=== PATIENT | female | born 1945 | race Caucasian/White ===

== ENCOUNTER → 2017-09-04 | Outpatient (CLI) | payer OTHER ==
[~2017-09-04] MED LIST: ALPR0.5T7 PO; CATHETER FLUSH 10 ML SYR IV PRN; CITA40TA11 PO; IOHEXOL 350 MG/ML 100 ML (OMNIPAQUE 350) VIAL IV ONE; LISI1TAB10 PO; NIFE60TA74 PO; NS 250 ML (IVPB) BAG IV ONE; OMEP20CA12 PO; RT-ALBUINH IH; TIOT18CA2 IH; TRAZ-28 PO
[2017-09-04 10:06] LABS: BUN/CREATININE RATIO 16; CREATININE SERUM 0.77 MG/DL (0.60-1.30); GFR ESTIMATED > 60
--- NOTE | 2017-09-04 11:11 | Diagnostic Imaging Report ---
PROCEDURE: CT chest with contrast only. TECHNIQUE: Multiple contiguous axial images were obtained through the chest after administration of intravenous contrast. INDICATION: Lung mass and dyspnea There are scattered bilateral pulmonary parenchymal densities including a dominant 2.9 x 2.1 cm irregular noncalcified mass along the superior aspect of the left pulmonary hilum. This extends toward the apex of the left upper lobe which may indicate a component of postobstructive pneumonitis. There is an approximately 0.4 cm subpleural nodule just lateral to the dominant mass with an approximately 0.5 cm nodular focus posteriorly adjacent to the major fissure. Note is made of air cyst in the lingula. Several subcentimeter nodules are present within the periphery of right upper, middle and lower lobes with an approximately 1.4 cm sub-solid nodular focus in the left lower lobe. No significant pleural fluid. IMPRESSION: Multiple bilateral pulmonary nodular densities with no suspicious soft tissue mass along the superior aspect left hilum measuring 2.9 x 2.1 cm. This is highly suspicious for neoplasm and consideration could be given to bronchoscopy or percutaneous biopsy. Additional small nodules in both lungs could be related to pneumonitis or metastatic disease and mildly prominent mediastinal lymph nodes are noted which could be metastatic in nature. Mild pericardial effusion is noted. Fluid is identified. There is an approximately 0.6 cm low-density nodule in the right lobe of the thyroid gland. There is a mildly prominent lymph node along the anterior aspect of the left mediastinum adjacent to origin of left common carotid artery which measures 1.1 cm long axis. There is an approximately 2.2 x 0.8 cm precarinal lymph node. Small amount of pericardial fluid is present. Dictated by: Dictated on workstation # [id number]
== END ==
LOC: RAD 09:29
PROVIDERS: ATTEND Nurse Practitioner Family
DX: R91.8 Other nonspecific abnormal finding of lung field (principal); I31.3 Pericardial effusion (noninflammatory); E04.1 Nontoxic single thyroid nodule; J44.9 Chronic obstructive pulmonary disease, unspecified; F17.200 Nicotine dependence, unspecified, uncomplicated
CPT/HCPCS: 36415; 71260; 82565; 84520

== ENCOUNTER → 2017-09-11 | Outpatient (CLI) | payer OTHER ==
[~2017-09-11] MED LIST changes: -CATHETER FLUSH 10 ML SYR IV PRN; -IOHEXOL 350 MG/ML 100 ML (OMNIPAQUE 350) VIAL IV ONE; -NS 250 ML (IVPB) BAG IV ONE; +RT-ALBUTEROL SULF 2.5 MG/3 ML PRE-MIX VIAL INH ONE; +RT-ALBUTEROL SULF 2.5 MG/3 ML PRE-MIX VIAL ONE
== END ==
LOC: RT 09:34 → EDUNIT# 09:45
PROVIDERS: ATTEND Nurse Practitioner Family
DX: J44.9 Chronic obstructive pulmonary disease, unspecified (principal); R91.8 Other nonspecific abnormal finding of lung field; R06.02 Shortness of breath; F17.200 Nicotine dependence, unspecified, uncomplicated
CPT/HCPCS: 94060; 94726; 94729

== ENCOUNTER 2017-09-21 14:00 | Outpatient (CLI) | payer OTHER ==
[~2017-09-21] VITALS: Ht 161.3 cm; Wt 68.9 kg
[2017-09-21] MEDS ORDERED: NIFE60TA74 PO (14:05)
[2017-09-21] MEDS ORDERED: RT-ALBUINH IH (14:05)
[2017-09-21] MEDS ORDERED: CITA40TA11 PO (14:05)
[2017-09-21] MEDS ORDERED: TIOT18CA2 IH (14:05)
[2017-09-21] MEDS ORDERED: ALPR0.5T7 PO (14:05)
[2017-09-21] MEDS ORDERED: LISI1TAB10 PO (14:05)
[2017-09-21] MEDS ORDERED: TRAZ-28 PO (14:05)
[2017-09-21] MEDS ORDERED: OMEP20CA12 PO (14:05)
== END 2017-09-21 14:52 ==
LOC: PREOP 14:00
PROVIDERS: ATTEND Internal Medicine Critical Care Medicine
DX: Z01.818 Encounter for other preprocedural examination (principal); R91.8 Other nonspecific abnormal finding of lung field; R06.02 Shortness of breath; F17.200 Nicotine dependence, unspecified, uncomplicated

== ENCOUNTER → 2017-10-10 | Outpatient (CLI) | payer OTHER ==
[~2017-10-10] MED LIST changes: -RT-ALBUTEROL SULF 2.5 MG/3 ML PRE-MIX VIAL INH ONE; -RT-ALBUTEROL SULF 2.5 MG/3 ML PRE-MIX VIAL ONE
--- NOTE | 2017-10-10 14:05 | Diagnostic Imaging Report ---
INDICATION: Lung mass. TECHNIQUE: Serum blood glucose level at the time of injection was 106 mg/dL. The patient was administered 14.2 mCi F-18 FDG intravenously, administered in the right antecubital location, and PET imaging was performed from the top of the skull to the mid thighs. In addition, noncontrast CT was performed for attenuation correction and anatomic correlation. COMPARISON: No prior PET/CT is available for comparison. Comparison is made with recent CT chest from 09/04/2017. FINDINGS: Symmetric uptake of activity within the brain is noted. Soft tissues of the neck are unremarkable. The previously seen spiculated mass in the left upper lobe does show FDG avidity with SUV max of approximately 12.3. Immediately cephalad and slightly lateral to the dominant left upper lobe lesion is a second lesion demonstrating uptake with SUV max of approximately 4.2 suggestive of a satellite lesion. The small node in the superior mediastinum adjacent to the origin of the left common carotid artery also shows FDG avidity with SUV max of approximately 3.8. No other areas of increased uptake within the chest are identified. Remainder of the pulmonary parenchyma is unremarkable. Previously noted small pulmonary nodules on conventional CT are likely too small to be detected by PET. Normal physiologic activity within the abdomen and pelvis is identified. No abdominal or pelvic lymphadenopathy or evidence of metastatic disease is seen. IMPRESSION: Abnormal PET/CT demonstrating intense uptake within the dominant mass in the left upper lobe, suggestive of primary lung neoplasm. There is a smaller satellite lesion just cephalad and lateral to the dominant lesion in the left upper lobe, which demonstrates uptake as well. There is a small lymph node in the superior mediastinum, suspicious for a metastatic node. No other regions of increased uptake are identified. Dictated by: Dictated on workstation # [id number]
== END ==
LOC: RAD 07:48
PROVIDERS: ATTEND Internal Medicine Critical Care Medicine
DX: C78.00 Secondary malignant neoplasm of unspecified lung (principal); C79.51 Secondary malignant neoplasm of bone

== ENCOUNTER 2017-10-18 06:44 | Day surgery (SDC) | payer MEDICARE, OTHER ==
[~2017-10-18] VITALS: Ht 161.3 cm; Wt 68.9 kg
[2017-10-18] MEDS ORDERED: LIDOCAINE JELLY 2% (XYLOCAINE) 30 ML TUBE TOP ONE (06:45)
[2017-10-18] MEDS ORDERED: LIDOCAINE PF 1% 2 ML AMP INJ ONE (06:45)
[2017-10-18] MEDS ORDERED: LIDOCAINE 4% INJ (XYLOCAINE) 5ML AMP INJ ONE (06:45)
--- OUTSIDE RECORDS SUMMARY | 2017-10-18 06:51 | XMS REPORT | Continuity of Care Document ---
Author Author [facility] Organization [facility] Address Unknown Phone Unavailable Allergies There is no data. Medications There is no data. Problems There is no data. Procedures There is no data. Results There is no data. Encounters ACCT No. Visit Date/Time Discharge Status Pt. Type Provider Facility Loc./Unit Complaint [id number] 07/20/2015 16:49:14 07/20/2015 23:59:59 CLS Outpatient Bashir Barrett
--- OUTSIDE RECORDS SUMMARY | 2017-10-18 06:51 | XMS REPORT | CCD ---
Author Author FRANKLYN LOREDO Organization Unknown Address [address] [facility] [address] [place], [place] [id number] Care Team Providers Care State Archivist Name Role Phone GORDY DIETZ MD Attphys Vital Signs Unknown or Not Available. Allergies Allergy Code Allergy Type Reaction Status No Known Drug Allergies 0 No known drug allergies Active Procedures Procedure Code Procedure Type Date Cataract removal insertion of lens; (-RT Right side of body) 31190 CPT 06/30/2015 History of Immunizations Unknown or Not Available. Problems Problem Code Start Date Resolved Date Status Syncopes 584792210 07/03/2015 Active Results Unknown or Not Available. Active Medications Medication Code Dose Units Frequency Route Modification Start Date/Time ALPRAZolam 1MG Oral Tablet [id number] 1 MILLIGRAMS DAILY ORAL 07/04/2015 09:26 Prescription Detail 1 MILLIGRAMS ORAL DAILY Citalopram 20MG Oral Tablet [id number] 20 MILLIGRAMS DAILY ORAL 07/04/2015 09:26 Prescription Detail 20 MILLIGRAMS ORAL DAILY Lisinopril/Hydrochlorothiazide 20MG-25MG Oral Tablet [id number] 1 EACH DAILY ORAL 07/04/2015 09:26 Prescription Detail 1 EACH ORAL DAILY Omeprazole 20 MG Oral Tablet, Delayed Release [id number] 20 MG DAILY ORAL 07/04/2015 09:26 Prescription Detail 20 MG ORAL DAILY Medications Administered During Visit Unknown or Not Available. Encounters Encounter Diagnosis Diagnosis Code Start Date Unspecified cataract H269 06/30/2015 Social History Smoking Status Code Start Date End Date Current every day smoker [id number] Patient Decision Aids Unknown or Not Available. Discharge Instructions You were admitted to [facility] on 06/30/2015 06:25 with a principal diagnosis of Unspecified cataract You had the following procedures done: Cataract removal insertion of lens; (-RT Right side of body) You were discharged from [facility] on 06/30/2015 10:16 Should you have any questions prior to discharge, please contact a member of your healthcare team. If you have left the hospital and have any questions, please contact your primary care physician. Chief Complaint and Reason For Visit Chief Complaint Date of Onset EYE CATARACT RT Function Status Unknown or Not Available. Plan of Care Unknown or Not Available. Referral/Transition of Care Unknown or Not Available.
--- OUTSIDE RECORDS SUMMARY | 2017-10-18 06:51 | XMS REPORT ---
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 510271149134385 Problem Essential hypertension I10 Active 53429132 Problem GERD without esophagitis K21.9 Active 749662350 ALLERGIES No Known Allergies SOCIAL HISTORY Never Assessed PLAN OF CARE Activity Details Follow Up prn Reason: VITAL SIGNS Height 53.3 in 2016-07-13 Weight 151.5 lbs 2016-07-13 Temperature 98.1 degrees Fahrenheit 2016-07-13 Heart Rate 100 bpm 2016-07-13 Respiratory Rate 18 2016-07-13 BMI 37.49 kg/m2 2016-07-13 Blood pressure systolic 160 mmHg 2016-07-13 Blood pressure diastolic 82 mmHg 2016-07-13 MEDICATIONS Medication Instructions Dosage Frequency Start Date End Date Duration Status Alprazolam 0.5 MG Orally Twice a day prn 1/2 tablet Active Citalopram Hydrobromide 40 mg Orally Once a day 1 tablet 24h Active NIFEdipine 20 mg Orally at bedtime 1 capsule Active Omeprazole 20 MG Orally Once a day 1 capsule 24h Active Lisinopril-Hydrochlorothiazide 20-25 MG Orally Once a day 1 tablet 24h Active Proventil HFA 108 (90 Base) MCG/ACT Inhalation 2 times a day prn 2 puffs as needed Active RESULTS No Results PROCEDURES Procedure Date Ordered Result Body Site [facility] ESTABLISHED PATIENT July 13, 2016 IMMUNIZATIONS No Known Immunizations MEDICAL (GENERAL) HISTORY Type Description Date Medical History Copd Medical History hypertension Medical History acid reflux Medical History depression, anxiety Surgical History Surgical History hysterectomy-full Surgical History cholecystectomy Surgical History cataracts-both Surgical History colonscopy-normal 2012 Surgical History EGD-acid reflux
[2017-10-18] MEDS ORDERED: PROPOFOL INJECTION 50 ML IV ONE (06:52)
[2017-10-18] MEDS ORDERED: DEXAMETHASONE 10 MG/ML (DECADRON) 1 ML VIAL ONE (06:53)
[2017-10-18] MEDS ORDERED: MIDAZOLAM 2 MG/2 ML (VERSED) VIAL ONE (06:53)
[2017-10-18] MEDS ORDERED: ONDANSETRON 4 MG/2 ML (SDV) Z0FRAN ONE (06:53)
[2017-10-18] MEDS ORDERED: fentaNYL INJECTION 100 MCG/2 ML AMP ONE (06:53)
[2017-10-18] MEDS ORDERED: LACTATED RINGERS 1,000 ML IV STA (06:54)
[2017-10-18] MEDS ORDERED: ROCURONIUM 10 MG/ML 5 ML SYRINGE IV ONE (07:03)
[2017-10-18] MEDS ORDERED: LACTATED RINGERS 1,000 ML IV ONE (07:04)
[2017-10-18] MEDS ORDERED: LIDOCAINE JELLY 2% (XYLOCAINE) 5 ML TUBE ONE (07:09)
[2017-10-18 07:10] VITALS: BP 192/107
[2017-10-18] MEDS ORDERED: LIDOCAINE PF 2% 5 ML (XYLOCAINE) VIAL ONE (07:16)
[2017-10-18] MEDS ORDERED: proPOfol 200 MG/20 ML (DIPRIVAN) VIAL IV ONE (07:16)
[2017-10-18] MEDS ORDERED: hydrALAZINE (APESOLINE) 20 MG/ML VIAL ONE (07:46)
[2017-10-18] MEDS ORDERED: GLYCOPYRROLATE 0.2 MG/ML (ROBINUL) 2 ML VIAL ONE (07:48)
[2017-10-18] MEDS ORDERED: NEOSTIGMINE 1 MG/ML 5 ML SYRINGE ONE (07:48)
[2017-10-18] MEDS ORDERED: ONDANSETRON 4 MG/2 ML (SDV) Z0FRAN IVP PRN (08:15)
[2017-10-18] MEDS ORDERED: HYDROmorphone 1 MG/ML (DILAUDID) 1 ML SYRINGE IV PRN (08:15)
--- NOTE | 2017-10-18 08:19 | Pulmonary Procedures ---
Pulmonary Procedures Date of Procedure Date of Service: Oct 18, 2017 Bronch Bronchoscopy with bronchoalveolar lavage (BAL), transbronchial washes, brushes and EBUS Preop DX ILD Postop DX: same Complications: none After informed consent obtained and formal time out pt was sedated per anesthesia. Bronchoscope was advanced through ET tube. 1% lidocaine was used on mic, and left/right main stem bronchus. EBUS was used to US the mediastinum. No enlarged lymph nodes were noted on EBUS and transbronchial bx were not done. An anatomical tour was undertaken down to the segmental bronchi bilaterally. No endobronchial lesions noted. From the JENIFER a bronchoalveolar lavage (BAL), transbronchial washes and, brushes were obtained. Pt tolerated procedure well. No complications noted. Stat CXR is pending. SIERRA LUCIO DO Oct 18, 2017 08:19
--- NOTE | 2017-10-18 08:53 | Diagnostic Imaging Report ---
Indication: Bronchoscopy and lung mass. Time of examination: 8:30 AM There is no evidence of pneumothorax, status post bronchoscopy. Mass left hilar left upper lobe is noted. There appears to be some infiltrate in the left upper lobe as well perhaps representing postobstructive pneumonia. Right lung is clear. Impression: No evidence of pneumothorax, status post bronchoscopy. Dictated by: Dictated on workstation # [id number]
[2017-10-18 09:10] VITALS: BP 173/69
--- NOTE | 2017-10-18 09:36 | Diagnostic Imaging Report ---
INDICATION: Fluoroscopy during bronchoscopy. Time of exam 7:48 AM Fluoroscopy was provided for Dr. Gunderson during a bronchoscopy. 83 seconds of fluoroscopy was utilized. IMPRESSION: Fluoroscopy during bronchoscopy. Dictated by: Dictated on workstation # [id number]
[2017-10-18 09:40] VITALS: BP 177/86
[2017-10-18 10:00] VITALS: BP 177/86
== END 2017-10-18 10:00 | disposition home or self-care (01) ==
LOC: ENDO 06:44
PROVIDERS: ATTEND Internal Medicine Critical Care Medicine
DX: J84.9 Interstitial pulmonary disease, unspecified (principal); J44.9 Chronic obstructive pulmonary disease, unspecified; I10 Essential (primary) hypertension; F17.210 Nicotine dependence, cigarettes, uncomplicated; Z79.899 Other long term (current) drug therapy
CPT/HCPCS: 71045; 87070; 87101; 87116; 87205; 94640

== ENCOUNTER → 2017-11-08 | Outpatient (CLI) | payer MEDICARE, OTHER ==
[~2017-11-08] VITALS: Ht 161.3 cm; Wt 68.9 kg
[~2017-11-08] MED LIST changes: +ALPRAZolam 0.5 MG (XANAX) TAB PO SCH; +BUDE10.2 IH; +LIDOCAINE 1% INJ 20 ML 20 ML VIAL INJ ONE; +MIDAZOLAM 2 MG/2 ML (VERSED) VIAL IVP PRN; +TRAZ-189 PO; -TRAZ-28 PO; +fentaNYL INJECTION 100 MCG/2 ML AMP IVP PRN; +hydrALAZINE (APESOLINE) 20 MG/ML VIAL IV SCH; +lisINopril 20 MG (PRINIVIL) TABLET PO ONE; +meTOprolol TARTRATE 25 MG (LOPRESSOR) TABLET PO SCH
[2017-11-08 08:05] VITALS: BP 180/113
[2017-11-08 08:17] LABS: BASOPHILS # (AUTO) 0.1 10^3/uL (0.0-0.1); BASOPHILS % (AUTO) 1 % (0-10); EOSINOPHILS # (AUTO) 0.1 10^3/uL (0.0-0.3); EOSINOPHILS % (AUTO) 2 % (0-10); HEMATOCRIT 39 % (35-52); HEMOGLOBIN 13.1 G/DL (11.5-16.0); LYMPHOCYTES # (AUTO) 1.2 X 10^3 (1.0-4.0); LYMPHOCYTES % (AUTO) 23 % (12-44); MEAN CORPUSCULAR HEMOGLOBIN 28 PG (25-34); MEAN CORPUSCULAR HGB CONC 34 G/DL (32-36); MEAN CORPUSCULAR VOLUME 84 FL (80-99); MEAN PLATELET VOLUME 10.9 FL (7.4-10.4); MONOCYTES # (AUTO) 0.5 X 10^3 (0.0-1.0); MONOCYTES % (AUTO) 9 % (0-12); NEUTROPHILS # (AUTO) 3.3 X 10^3 (1.8-7.8); NEUTROPHILS % (AUTO) 65 % (42-75); PLATELET COUNT 280 10^3/uL (130-400); RED BLOOD COUNT 4.66 10^6/uL (4.35-5.85); RED CELL DISTRIBUTION WIDTH 13.3 % (10.0-14.5)
[2017-11-08 08:25] LABS: PROTHROMBIN TIME PATIENT 13.3 SEC (12.2-14.7)
[2017-11-08 10:42] VITALS: BP 180/113
== END ==
LOC: SDC 07:42 → 4TH 11-13 07:05
PROVIDERS: ATTEND Internal Medicine Critical Care Medicine
DX: R91.8 Other nonspecific abnormal finding of lung field (principal); R94.2 Abnormal results of pulmonary function studies; J44.9 Chronic obstructive pulmonary disease, unspecified; R06.02 Shortness of breath; F17.200 Nicotine dependence, unspecified, uncomplicated; Z53.9 Procedure and treatment not carried out, unspecified reason
CPT/HCPCS: 36415; 85025; 85610; 85730

== ENCOUNTER 2017-11-13 07:05 | Day surgery (SDC) | payer MEDICARE, OTHER ==
[~2017-11-13] VITALS: Ht 160 cm; Wt 72.3 kg
[2017-11-13] VITALS (13 sets, daily range): BP systolic 123–181; BP diastolic 66–93
[~2017-11-13 07:05] MED LIST changes: -ALPRAZolam 0.5 MG (XANAX) TAB PO SCH; -BUDE10.2 IH; -LIDOCAINE 1% INJ 20 ML 20 ML VIAL INJ ONE; -MIDAZOLAM 2 MG/2 ML (VERSED) VIAL IVP PRN; -fentaNYL INJECTION 100 MCG/2 ML AMP IVP PRN; -hydrALAZINE (APESOLINE) 20 MG/ML VIAL IV SCH; -lisINopril 20 MG (PRINIVIL) TABLET PO ONE; -meTOprolol TARTRATE 25 MG (LOPRESSOR) TABLET PO SCH
[2017-11-13] MEDS ORDERED: NS IV 1000 ML 1,000 ML IV STA (07:36)
[2017-11-13] MEDS ORDERED: MIDAZOLAM 2 MG/2 ML (VERSED) VIAL IVP PRN (07:45)
[2017-11-13] MEDS ORDERED: fentaNYL INJECTION 100 MCG/2 ML AMP IVP PRN (07:45)
[2017-11-13] MEDS ORDERED: LIDOCAINE 1% INJ 20 ML 20 ML VIAL INJ ONE (07:45)
[2017-11-13] MEDS ORDERED: ALPRAZolam 0.5 MG (XANAX) TAB PO SCH (08:45)
[2017-11-13] MEDS ORDERED: hydrALAZINE (APESOLINE) 20 MG/ML VIAL IV PRN (08:45)
--- NOTE | 2017-11-13 08:49 | Pulmonary History & Physicial ---
History of Present Illness History of Present Illness Date of Consultation 11/13/17 08:44 Time Seen by Provider: 08:50 Date of Admission History of Present Illness 72yo with hx of COPD and lung mass found on imaging. Pt was scheduled for CT bx last week however it was concelled secondary to HTN around 180 SBP. PT was rescheduled for this week. PT is moderate risk of PTX from procedure secondary to emphysema. Since she has multiple comorbidities. Myself and Dr. Elliott believe it would be safer to do a observation admission prior to procedure. If she has no complications she will go home today. IF she does develop a PTX she will be made inpatient status and chest tube will be place. PT did take home anti hypertensives this time. She did not take these medicines prior to the last scheduled procedure. Allergies and Home Medications Allergies Coded Allergies: No Known Drug Allergies (Unverified , 11/13/17) Home Medications Albuterol Sulfate 1 Puff Puff, 2 PUFF IH Q4H PRN for SHORTNESS OF BREATH, ( Reported) 1 PUFF = 90 MCG Alprazolam 0.5 Mg Tablet, 0.5 MG PO BID PRN for ANXIETY, (Reported) Budesonide/Formoterol Fumarate 10.2 Gm Hfa.aer.ad, 2 PUFF IH BID, (Reported) Citalopram Hydrobromide 40 Mg Tablet, 20 MG PO DAILY, (Reported) TAKES 1/2 (40MG) TABLET Lisinopril/Hydrochlorothiazide 1 Each Tablet, 1 TAB PO DAILY, (Reported) Nifedipine 60 Mg Tablet.er, 60 MG PO DAILY, (Reported) Omeprazole 20 Mg Capsule.dr, 20 MG PO DAILY, (Reported) Trazodone HCl 50 Mg Tablet, 25-50 MG PO HS PRN for SLEEP, (Reported) Patient Home Medication List Home Medication List Reviewed: Yes Past Jvcmxkc-Vkrhqo-Ceajkj Hx Patient Social History Type Used: Cigarettes Recent Foreign Travel: No Contact w/Someone Who Travel: No Recent Hopitalizations: No Immunizations Up To Date Tetanus Booster (TDap): Unknown Date of Pneumonia Vaccine: September 21, 2016 Seasonal Allergies Seasonal Allergies: No Past Medical History Section, Gallbladder, Hysterectomy COPD Currently Using CPAP: No Currently Using BIPAP: No Hypertension Neuropathy Reproductive Disorders: No Female Reproductive Disorders: Denies Sexually Transmitted Disease: No HIV/AIDS: No Arthritis Review of Systems Time Seen by Provider: 08:50 Constitutional: Weakness, Malaise; No: Fever, Chills, Sweats, Other Eyes: No: Pain, Vision change, Conjunctivae inflammation, Eyelid inflammation, Other, Redness ENT: Nose congestion; No: Ear pain, Ear discharge, Nose pain, Nose discharge, Mouth pain, Mouth swelling, Throat pain, Throat swelling, Other Respiratory: Cough, Dry, Shortness of breath, SOB with excertion Cardiovascular: No: Chest Pain, Palpitations, Orthopnea, Paroxysmal Noc. Dyspnea, Edema, Lt Headedness, Other Neurological: Weakness Exam Exam Height & Weight Height: 5'3.50" Weight: 152lbs. 0.0oz. 68.900076xr; 26.5 BMI Method: General Appearance: No Apparent Distress, WD/WN, Anxious HEENT: Normal ENT Inspection, Pharynx Normal Neck: Full Range of Motion, Normal Inspection, Non Tender, Supple Respiratory: Chest Non Tender, No Accessory Muscle Use, No Respiratory Distress , Decreased Breath Sounds Cardiovascular: Regular Rate, Rhythm, No Murmur, Normal Peripheral Pulses Gastrointestinal: normal bowel sounds, non tender, soft, no organomegaly, no pulsatile mass Extremity: Normal Capillary Refill, Normal Inspection, Non Tender Neurologic/Psychiatric: Alert, Oriented x3 Skin: Normal Color, Warm/Dry Lymphatic: No Adenopathy Assessment/Plan Assessment/Plan Admission Status: Observation Lung Mass - Needs CT bx -previous bronchoscopy was negative for cytology -CT bx planned for today Moderate emphysema - currently stable -Start DUonebs and continue to monitor -PT is ok to proceed for bx from my standpoint. HTN -CT bx was cancelled last time secondary to HTN aorund 180 -Pt did take home meds this time -Will start Hydralazine PRN Anxiety -PT takes home xanax -Will reorder for obs while in hospital Tobacco dependance Will check labs and portable CXR prior to procedure. SIERRA LUCIO DO Nov 13, 2017 08:49
[2017-11-13] MEDS ORDERED: RT-ALBUTEROL/IPRATROPIUM 3 ML (DUONEB) VIAL IH PRN (09:00)
[2017-11-13 09:12] LABS: BASOPHILS # (AUTO) 0.1 10^3/uL (0.0-0.1); BASOPHILS % (AUTO) 1 % (0-10); EOSINOPHILS # (AUTO) 0.1 10^3/uL (0.0-0.3); EOSINOPHILS % (AUTO) 2 % (0-10); HEMATOCRIT 38 % (35-52); HEMOGLOBIN 12.8 G/DL (11.5-16.0); LYMPHOCYTES # (AUTO) 1.1 X 10^3 (1.0-4.0); LYMPHOCYTES % (AUTO) 21 % (12-44); MEAN CORPUSCULAR HEMOGLOBIN 28 PG (25-34); MEAN CORPUSCULAR HGB CONC 34 G/DL (32-36); MEAN CORPUSCULAR VOLUME 84 FL (80-99); MONOCYTES # (AUTO) 0.4 X 10^3 (0.0-1.0); MONOCYTES % (AUTO) 8 % (0-12); NEUTROPHILS # (AUTO) 3.6 X 10^3 (1.8-7.8); NEUTROPHILS % (AUTO) 69 % (42-75); PLATELET COUNT 234 10^3/uL (130-400); RED BLOOD COUNT 4.51 10^6/uL (4.35-5.85); RED CELL DISTRIBUTION WIDTH 13.2 % (10.0-14.5); WHITE BLOOD COUNT 5.2 10^3/uL (4.3-11.0)
--- NOTE | 2017-11-13 09:14 | Diagnostic Imaging Report ---
INDICATION: Shortness of breath. TIME OF EXAMINATION: 8:53 AM. COMPARISON: 10/18/2017. FINDINGS: The heart size is normal. The increased density in the left upper lobe and left hilum has improved when compared with the prior study of one month earlier. There is some mild residual density in the left suprahilar region. The right lung is clear. No effusion or pneumothorax is seen. IMPRESSION: Improving infiltrate in the left upper lobe since the study of one month earlier. There continues to be abnormal density in the left suprahilar region, likely accounting for the density noted on the PET scan. Continued followup is recommended. Dictated by: Dictated on workstation # [id number]
[2017-11-13 09:32] LABS: ALANINE AMINOTRANSFERASE 7 U/L (0-55); ALKALINE PHOSPHATASE 86 U/L (40-136); BILIRUBIN,TOTAL 0.3 MG/DL (0.1-1.0); BUN/CREATININE RATIO 14; CALCIUM 9.7 MG/DL (8.5-10.1); CARBON DIOXIDE 26 MMOL/L (21-32); CHLORIDE 104 MMOL/L (98-107); CREATININE SERUM 0.73 MG/DL (0.60-1.30); GFR ESTIMATED > 60; GLUCOSE 96 MG/DL (70-105); MAGNESIUM 2.2 MG/DL (1.8-2.4); PHOSPHORUS 3.4 MG/DL (2.3-4.7); POTASSIUM 3.9 MMOL/L (3.6-5.0); SODIUM 137 MMOL/L (135-145); TOTAL PROTEIN 7.3 GM/DL (6.4-8.2)
[2017-11-13] MEDS ORDERED: ALPRAZolam 0.5 MG (XANAX) TAB PO PRN (10:00)
[2017-11-13] MEDS ORDERED: BUDE10.2 IH (10:23)
[2017-11-13] MEDS: RT-ALBUTEROL/IPRATROPIUM 3 ML (DUONEB) VIAL INH SCH ×2 (11:18→15:51)
[2017-11-13] MEDS ORDERED: LIDOCAINE 1% INJ 20 ML 20 ML VIAL ONE (13:00)
[2017-11-13] MEDS ORDERED: MIDAZOLAM 2 MG/2 ML (VERSED) VIAL ONE (13:07)
[2017-11-13] MEDS ORDERED: NS IV 1000 ML 0 ML ONE (13:07)
[2017-11-13] MEDS ORDERED: fentaNYL INJECTION 100 MCG/2 ML AMP ONE (13:07)
[2017-11-13] MEDS ORDERED: HYDROcodone/APAP 5 MG/325 MG (LORTAB) TAB PO PRN (13:30)
--- OUTSIDE RECORDS SUMMARY | 2017-11-13 13:43 | XMS REPORT | Continuity of Care Document ---
Author Author [facility] Organization [facility] Address Unknown Phone Unavailable Allergies There is no data. Medications There is no data. Problems There is no data. Procedures There is no data. Results There is no data. Encounters ACCT No. Visit Date/Time Discharge Status Pt. Type Provider Facility Loc./Unit Complaint [id number] 07/20/2015 16:49:14 07/20/2015 23:59:59 CLS Outpatient Bashir Barrett
--- NOTE | 2017-11-13 14:22 | Pre-Procedure Progress Note ---
Pre-Procedure Progress Note H&P Reviewed The H&P was reviewed, patient examined and no changes noted. Date H&P Reviewed: Nov 13, 2017 Time H&P Reviewed: 12:00 Pre-Procedure Diagnosis: Left lung mass NATHAN BROWN MD Nov 13, 2017 14:22
--- NOTE | 2017-11-13 14:36 | Diagnostic Imaging Report ---
INDICATION: Left lung mass. Patient present for CT-guided biopsy. FINDINGS: After informed written consent was obtained from the patient, patient was brought to the CT suite, placed on table in the supine position. Axial imaging through the chest was performed to evaluate appropriate entry site. The left anterior chest was prepped and draped in the usual sterile fashion. Small amount of 1% lidocaine was utilized for local anesthesia. 20-gauge Temno coaxial needle was advanced, placed with its tip along the superior and slightly lateral margin of the mass in the left suprahilar location. A total of three core biopsies were obtained. Blood patch was injected during needle removal. Followup imaging demonstrates a small amount of hemorrhage in the perilesional region. No pneumothorax is detected. IMPRESSION: CT-guided core biopsy of the spiculated left suprahilar mass, as described. Pathology results are currently pending. Dictated by: Dictated on workstation # [id number]
--- NOTE | 2017-11-13 15:44 | Diagnostic Imaging Report ---
INDICATION: Post lung biopsy. TIME OF EXAMINATION: 2:55 PM. COMPARISON: Correlation is made with the prior study from earlier this same day. FINDINGS: No pneumothorax is seen status post biopsy. There is some mild perilesional infiltrate in the left perihilar region, consistent with mild hemorrhage. The right lung is clear. No effusion is seen. IMPRESSION: No evidence of pneumothorax status post left lung biopsy. Dictated by: Dictated on workstation # [id number]
--- NOTE | 2017-11-17 13:42 | Physician Query-Final Dx ---
CHARLIE MOSES 11/17/17 1342: Final Diagnosis Give Final Diagnosis Please give Final Diagnosis SIERRA LUCIO DO 11/21/17 0713: Final Diagnosis Give Final Diagnosis Lung Mass r/o cancer- Needs CT bx -previous bronchoscopy was negative for cytology -CT bx planned for today Moderate emphysema - currently stable -Start DUonebs and continue to monitor -PT is ok to proceed for bx from my standpoint. HTN -CT bx was cancelled last time secondary to HTN aorund 180 -Pt did take home meds this time -Will start Hydralazine PRN Anxiety -PT takes home xanax -Will reorder for obs while in hospital Tobacco dependance Will check labs and portable CXR prior to procedure. CHARLIE MOSES Nov 17, 2017 13:42 SIERRA LUCIO DO Nov 21, 2017 07:13
--- OUTSIDE RECORDS SUMMARY | 2017-11-17 15:27 | XMS REPORT | Continuity of Care Document ---
Author Author [facility] Organization [facility] Address Unknown Phone Unavailable Allergies There is no data. Medications There is no data. Problems There is no data. Procedures There is no data. Results There is no data. Encounters ACCT No. Visit Date/Time Discharge Status Pt. Type Provider Facility Loc./Unit Complaint [id number] 07/20/2015 16:49:14 07/20/2015 23:59:59 CLS Outpatient Bashir Barrett
== END 2017-11-13 18:39 | disposition home or self-care (01) ==
LOC: SDC 07:05 → 4TH 07:05 → UNDOADMOB 07:05 → 4TH 07:05 → SDC 18:39 → UNDODISOB 18:39 → EDSTATUS 11-17 15:22
PROVIDERS: ATTEND Internal Medicine Critical Care Medicine
DX: C34.02 Malignant neoplasm of left main bronchus (principal); J43.9 Emphysema, unspecified; F17.200 Nicotine dependence, unspecified, uncomplicated; F41.9 Anxiety disorder, unspecified; Z79.899 Other long term (current) drug therapy
CPT/HCPCS: 36415; 71045; 80053; 83735; 83880; 84100; 85025; 94640

== ENCOUNTER 2017-11-24 10:26 | Outpatient (RCR) | payer MEDICARE, OTHER ==
[~2017-11-24 10:26] MED LIST changes: +BUDE10.2 IH
== END 2017-11-28 | disposition home or self-care (01) ==
LOC: ONC 10:26
PROVIDERS: ATTEND Internal Medicine Hematology & Oncology
DX: C34.02 Malignant neoplasm of left main bronchus (principal); C77.1 Secondary and unspecified malignant neoplasm of intrathoracic lymph nodes; J43.9 Emphysema, unspecified; I10 Essential (primary) hypertension; F17.210 Nicotine dependence, cigarettes, uncomplicated; F41.9 Anxiety disorder, unspecified; Z79.899 Other long term (current) drug therapy
CPT/HCPCS: 99214